=== PATIENT | female | born 1970 | race Caucasian/White ===

== ENCOUNTER → 2017-05-19 | Day surgery (SDC) | payer SELFPAY ==
[~2017-05-19] VITALS: Ht 170.2 cm; Wt 85.8 kg
[~2017-05-19] MED LIST: ACETAMINOPHEN/HYDROcodone 325 MG/5 MG TAB PO PRN; ALPR.5 PO; APREPITANT 40 MG CAP ONE; BACITRACIN TOP OINT 15 GM TUBE ONE; BUPIVACAINE/EPINEPHRINE 0.25% PF 10 ML VIAL ONE; CHLORHEXIDINE GLUCONATE 2 % 1 PACK (2 CLOTHS) TOPICAL PRN; DEXAMETHASONE SOD PHOS 4 MG/ML VIAL IV ONE; DO NOT ADM ANY ANTICOAGULANT DRUGS PRN; ESMOLOL HCL 100 MG/10 ML VIAL IV ONE; ESZO3 PO; GLYCOPYRROLATE 1 MG/5 ML SYRINGE IV PUSH ONE; INSULIN HUMAN REGULAR 1,000 UNITS/10 ML VIAL SQ PRN; LACTATED RINGER'S 1000 ML IV PRN; LIDOCAINE HCL 1% PF 5 ML SYRINGE OTHER ONE; METOPROLOL TARTRATE 25 MG TAB PO PRN; MIDAZOLAM HCL 2 MG/2 ML VIAL ONE; NEOSTIGMINE 5 MG/5 ML SYRINGE IV PUSH ONE; ONDANSETRON HCL 4 MG/2 ML VIAL IV ONE; POVIDONE IODINE 5% (ANTISEPSIS KIT) 4 APPLICATIONS EACH NARE PRN; PRAM0.5T PO; PROPOFOL 200 MG/20 ML AMP IV ONE; PROPOFOL 500 MG/50 ML INJ 100 ML ONE; ROCURONIUM INJ 50 MG/5 ML SYRINGE IV PUSH ONE; SODIUM CHLORID 0.9% 500 ML IV PRN; SODIUM CHLORIDE 0.9% INJ 100 ML ONE; SUGAMMADEX SODIUM 200 MG/2 ML VIAL IV PUSH ONE; ceFAZolin 1,000 MG/NS 100 ML IV SCH; ceFAZolin INJ 1,000 MG VIAL ONE
[2017-05-19 12:08] LABS: WHITE BLOOD COUNT 9.5 TH/MM3 (4.0-11.0)
[2017-05-19 12:09] LABS: AUTOMATED NEUTROPHIL # 6.1 TH/MM3 (1.8-7.7); BASOPHIL % 0.5 % (0.0-2.0); EOSINOPHIL # 0.1 TH/MM3 (0-0.4); EOSINOPHIL % 0.5 % (0.0-4.0); HEMATOCRIT 42.5 % (35.0-46.0); LYMPH % 26.7 % (9.0-44.0); LYMPHOCYTE # 2.5 TH/MM3 (1.0-4.8); MEAN CELL VOLUME 87.8 FL (80.0-100.0); MEAN PLATELET VOLUME 8.8 FL (7.0-11.0); MONO % 8.4 % (0.0-8.0); MONOCYTE # 0.8 TH/MM3 (0-0.9); NEUT % 63.9 % (16.0-70.0); PLATELET COUNT 276 TH/MM3 (150-450); RED BLOOD COUNT 4.83 MIL/MM3 (4.00-5.30); RED CELL DISTRIBUTION WIDTH 13.9 % (11.6-17.2)
[2017-05-19 16:15] VITALS: BP 135/78; PULSE 73; RESP 20; TEMP 98; O2SAT 96
--- NOTE | 2017-05-19 20:24 | PD.OP ---
Operative Report Date of Surgery: May 19, 2017 Preoperative Diagnosis: (1) Basal cell carcinoma (BCC) of right side of nose (2) Basal cell carcinoma of upper eyelid Postoperative Diagnosis: (1) Basal cell carcinoma of upper eyelid (2) Basal cell carcinoma (BCC) of right side of nose Procedure: Wide local excision of right superomedial upper eyelid and right inferior nasal sidewall basal cell carcinomas (73209, 34842 respectively) Anesthesia: General Surgeon: Red Patton [employer] Collections(s): . Operation and Findings: This is a 47-year-old female presents with biopsy-proven right superomedial upper eyelid basal cell carcinoma as well as a right inferior nasal sidewall/ nasal ala basal cell carcinoma. Risks benefits and alternative treatments were discussed. All questions were answered and the patient expressed understanding. The concept of margins was explained to the patient at length. The likely size of the defect was shown to the patient with a ruler. The patient elected to assume the risks of wide local excision of the above lesions. The patient expressed understanding that this would be a staged procedure with closure being performed at a future surgery. Informed consent was obtained. The surgical sites were marked in the preoperative holding bay. The patient was given antibiotics on-call to the operating room. The patient was taken to the operating room. All pressure points were padded. A surgical timeout was performed. After the smooth induction of general anesthesia, the lesions were marked with 4 mm margins. Quarter percent Marcaine with epinephrine was instilled to the surgical sites. Surgical sites were prepped and draped in the usual sterile fashion. Attention was first turned to the upper eyelid basal cell. This was excised, marked for orientation with sutures , and sent to pathology for frozen and permanent section. Attention was then turned to the right nasal basal cell carcinoma which was similarly excised, marked for orientation with sutures, and sent for frozen and permanent section. Hemostasis was ensured. Both frozen margins came back negative. The wounds were dressed with bacitracin Xeroform gauze dry gauze and a Tegaderm. The patient was awoken from anesthesia and arrived stable and doing well to the PACU. All needle sponge and instrument counts were correct 2. Red Patton MD May 19, 2017 20:24
== END | disposition home or self-care (01) ==
LOC: HSDC 10:36
PROVIDERS: ATTEND Student in an Organized Health Care Education/Training Program
DX: C44.112 Basal cell carcinoma of skin of right eyelid, including canthus (principal); C44.311 Basal cell carcinoma of skin of nose
CPT/HCPCS: 00300; 11641; 11642; 85025; 88305; 88331; J0690; J1100; J2250; J2405; J2710; J3010; J7120; J8501

== ENCOUNTER → 2017-05-26 | Day surgery (SDC) | payer SELFPAY ==
[~2017-05-26] VITALS: Ht 170.2 cm; Wt 86.5 kg
[~2017-05-26] MED LIST changes: +*ONDANSETRON 4 MG VIAL PERIprocedural Use ONLY ONE; +*PROMETHAZINE 25 MG/ML VIAL PERIprocedural use ONLY ONE; +BACITRACIN TOP OINT 15 GM TUBE TOPICAL ONE; +BUPIVACAINE/EPINEPHRINE 0.25% 50 ML VIAL ONE; -BUPIVACAINE/EPINEPHRINE 0.25% PF 10 ML VIAL ONE; -INSULIN HUMAN REGULAR 1,000 UNITS/10 ML VIAL SQ PRN; -PROPOFOL 500 MG/50 ML INJ 100 ML ONE; -SODIUM CHLORIDE 0.9% INJ 100 ML ONE; -SUGAMMADEX SODIUM 200 MG/2 ML VIAL IV PUSH ONE; -ceFAZolin INJ 1,000 MG VIAL ONE
[2017-05-26 16:09] VITALS: BP 150/89; PULSE 96; RESP 18; TEMP 97.9; O2SAT 98
--- NOTE | 2017-05-27 17:12 | PD.OP ---
Operative Report Date of Surgery: May 26, 2017 Preoperative Diagnosis: (1) Open wound of eyelid (2) Open wound, nose, without complication Postoperative Diagnosis: Procedure: Adjacent tissue rearrangement of right upper eyelid and nasal wounds (01082 x 2) Surgeon: Red Patton [employer] Consultant(s): . Operation and Findings: 47-year-old female who presents with right superomedial upper eyelid and right inferior nasal sidewall wounds status post skin lesion wide local excision. The upper eyelid wound measured roughly 9 x 6 mm. The right inferior nasal sidewall lesion measured roughly 11 x 13 mm. Risks benefits and alternative treatments were discussed. All questions were answered and the patient expressed understanding. The patient elected to assume the risks of adjacent tissue rearrangement of both wounds. Informed consent was obtained. The surgical sites were marked in the preoperative holding bay. Antibiotics were given on-call to the operating room. Patient was taken to the operating room. All pressure points were padded. A surgical timeout was performed. After the smooth induction of general anesthesia both surgical sites were instilled with quarter percent Marcaine with epinephrine. The surgical sites were prepped and draped in the usual sterile fashion. Attention was first turned to the right superomedial upper eyelid wound. A laterally based transverse advancement flap was raised which measured roughly 2 x 1 cm. Orbicularis was included in the base of the flap to increase perfusion. The medial aspect of the wound was gently undermined in a subdermal plane. Hemostasis was ensured using the bipolar cautery. The flap was sutured in place with one deep dermal 4-0 Vicryl followed by a running 6-0 Prolene in a simple fashion. There was excellent cap refill at the end of the procedure. Attention was then turned to the right nasal sidewall wound. A triangular-shaped transposition flap was designed. After wide circumferential undermining and excision of the standing cone at the superolateral ala, this flap was able to close the wound without tension. The total dimension of the Z-plasty/transposition flap measured roughly 3 x 2 cm. All aspects exhibited excellent cap refill at the end of the case. The surgical sites were cleaned. Both incisions were dressed with bacitracin Xeroform gauze dry gauze and a Tegaderm. The patient was woken from anesthesia and arrived stable and doing well to the PACU. All needle sponge and instrument counts were correct 2. Red Patton MD May 27, 2017 17:12
== END | disposition home or self-care (01) ==
LOC: HSDC 10:23
PROVIDERS: ATTEND Student in an Organized Health Care Education/Training Program
DX: S01.20XA Unspecified open wound of nose, initial encounter (principal); S01.101A Unspecified open wound of right eyelid and periocular area, initial encounter; G25.81 Restless legs syndrome; C44.112 Basal cell carcinoma of skin of right eyelid, including canthus; C44.311 Basal cell carcinoma of skin of nose
CPT/HCPCS: 00300; 14060; J0690; J1100; J2250; J2405; J2550; J2710; J3010; J7120; J8501